=== PATIENT | male | born 1945 | race Caucasian/White ===

== ENCOUNTER 2020-11-07 09:30 | Emergency (ER) | payer MEDICARE ==
[~2020-11-07] VITALS: Ht 175.3 cm; Wt 87.0 kg
[2020-11-07 09:54] VITALS: BP 139/66
--- NOTE | 2020-11-07 15:01 | NUR ---
advice nurse note: Pt to room from lobby.
--- NOTE | 2020-11-07 16:14 | NUR ---
Patient given discharge instructions and they have confirmed that they understand the instructions. Patient ambulatory with steady gait.
== END 2020-11-07 16:16 | disposition home or self-care (01) ==
LOC: ED 15:35
DX: S90.121A Contusion of right lesser toe(s) without damage to nail, initial encounter (principal); L03.115 Cellulitis of right lower limb; X58.XXXA Exposure to other specified factors, initial encounter; Y93.89 Activity, other specified; Y92.89 Other specified places as the place of occurrence of the external cause; Y99.8 Other external cause status
CPT/HCPCS: 99283